=== PATIENT | male | born 1970 | race Caucasian/White ===

== ENCOUNTER 2016-07-21 06:23 | Emergency (ER) | payer OTHER | END 2016-07-21 08:50 | disposition home or self-care (01) | LOC: ER1 06:23 | DX: G89.29 Other chronic pain (principal); M54.5 Low back pain; K59.00 Constipation, unspecified; I10 Essential (primary) hypertension; F17.200 Nicotine dependence, unspecified, uncomplicated; Z88.8 Allergy status to other drugs, medicaments and biological substances | CPT/HCPCS: 96372; 99283; J1100; J1885 ==

== ENCOUNTER 2016-09-05 20:35 | Emergency (ER) | payer OTHER ==
[2016-09-05 22:42] LABS: HEMOGLOBIN 14.2 gm/dl (14.0-17.5); RED BLOOD COUNT 4.71 M/UL (4.20-5.50); WHITE BLOOD COUNT 13.9 K/UL (4.5-11.0)
[2016-09-05 23:35] LABS: BUN/CREATININE RATIO 7 (0-10)
== END 2016-09-06 04:50 | disposition short-term general hospital (02) ==
LOC: ER1 20:35
PROVIDERS: Student in an Organized Health Care Education/Training Program
DX: M46.44 Discitis, unspecified, thoracic region (principal); M46.24 Osteomyelitis of vertebra, thoracic region; K62.5 Hemorrhage of anus and rectum; M62.82 Rhabdomyolysis; N28.9 Disorder of kidney and ureter, unspecified; I10 Essential (primary) hypertension; F17.210 Nicotine dependence, cigarettes, uncomplicated; Z79.899 Other long term (current) drug therapy; W19.XXXA Unspecified fall, initial encounter; Z91.81 History of falling; Y92.009 Unspecified place in unspecified non-institutional (private) residence as the place of occurrence of the external cause
CPT/HCPCS: 36415; 70450; 71010; 72125; 72128; 72131; 72170; 73030; 80053; 82272; 82550; 82553; 83605; 83690; 83874; 84443; 84484; 85025; 85610; 85730; 87040; 93005; 96361; 96374; 96375; 99285; C9113; G0480; J0696; J3370; J7030; J7050